=== PATIENT | female | born 1965 | race Caucasian/White ===

== ENCOUNTER 2022-01-19 10:20 | Emergency (ER) | payer OTHER, SELFPAY ==
[2022-01-19 10:29] VITALS: PULSE 61; RESP 18; TEMP 36.2; O2SAT 96; BMI 29.1
--- NOTE | 2022-01-19 11:02 | CRLHL7_ITS ---
For Patients: As a result of the Cures Act, medical imaging exams and procedure reports are released immediately into your electronic medical record. You may view this report before your referring provider. If you have questions, please contact your health care provider. Indication: Injury and pain Technique: Left foot 3 views. Comparison: None Findings: Small plantar and posterior calcaneal spurs. Accessory ossicle adjacent to the navicular. Bipartite tibial sesamoid. Chronic deformity of the 2nd toe distal phalanx. Midfoot alignment normal. No fracture. Impression: No sign of acute injury. Dictated by Greg Wall MD @ 01/19/2022 12:10:18 PM (Electronically Signed)
--- NOTE | 2022-01-19 11:19 | ED.LOWEXIN ---
HPI - Extremity Injury (Lower) General Time Seen by Provider: 11:20 Date Seen: 01/19/22 Chief Complaint: Lower Extremity Swelling Stated Complaint: Left foot injury Time Seen by Provider: 01/19/22 11:19 Source: patient, RN notes reviewed and old records reviewed Mode of arrival: ambulatory Limitations: no limitations History of Present Illness HPI Narrative: Aubrie is a very pleasant 56-year-old female with a history of hypertension who comes to the emergency room with a left foot injury. Patient was noted to be at work in [place] when she dropped a jar of pickles on her foot. She was wearing tennis shoes at the time. Since that time she has had significant discomfort. She denies any prodromal symptoms that could have caused the dropping of the pickles but blames this rather on the fact that she has carpal tunnel syndrome in her right wrist and has to wear a splint. Movement and walking increases her discomfort. Resting makes her feel the best. She is receptive to taking ibuprofen at this time. Related Data Home Medications Medication Instructions Recorded Confirmed escitalopram oxalate 10 mg tablet mg 01/19/22 hydrochlorothiazide 12.5 mg tablet mg 01/19/22 losartan 100 mg tablet mg 01/19/22 simvastatin 20 mg tablet mg 01/19/22 Allergies Allergy/AdvReac Type Severity Reaction Status Date / Time cephalexin Allergy Verified 01/19/22 10:36 chlorthalidone Allergy Verified 01/19/22 10:36 codeine Allergy Verified 01/19/22 10:36 erythromycin base Allergy Verified 01/19/22 10:36 fluoxetine Allergy Verified 01/19/22 10:36 lisinopril Allergy Verified 01/19/22 10:36 Penicillins Allergy Verified 01/19/22 10:36 Exam Narrative: Exam Narrative: Patient is alert and oriented. She is sitting comfortably in a exam chair. In room 4. A stocking and shoe are removed. Patient has an area of erythema elongated oval measuring approximately 3 cm x 1 cm over the navicular and 1st and 2nd metatarsals. Tender to the touch. Slight edema. Distally sensation and movement intact. Const: Vital Signs, click to edit/add: Vital Signs - 24 hr 01/19/22 10:29 01/19/22 11:54 Temperature 97.1 F L Pulse Rate [Right Pulse Oximeter] 61 Respiratory Rate 18 Blood Pressure [Le ft Upper Arm] 152/72 H Pulse Oximetry 96 Oxygen Delivery Me thod Room Air Course Course Hospital Course: Ordering foot x-rays and ibuprofen 600 mg p.o. at this time. Vital Signs Vital signs: Initial Vital Signs Temperature 97.1 F L 01/19/22 10:29 Temperature Source Temporal Artery Scan 01/19/22 10:29 Pulse Rate 61 01/19/22 10:29 Respiratory Rate 18 01/19/22 10:29 Pulse Oximetry 96 01/19/22 10:29 Oxygen Delivery Method 01/19/22 10:29 Vital Signs Temperature 97.1 F L 01/19/22 10:29 Pulse Rate 61 01/19/22 10:29 Respiratory Rate 18 01/19/22 10:29 Pulse Oximetry 96 01/19/22 10:29 Oxygen Delivery Method 01/19/22 10:29 Temperature 97.1 F L 01/19/22 10:29 Pulse Rate 61 01/19/22 10:29 Respiratory Rate 18 01/19/22 10:29 Blood Pressure 152/72 H 01/19/22 11:54 Pulse Oximetry 96 01/19/22 10:29 Oxygen Delivery Method 01/19/22 10:29 MDM - Extremity Injury (Lower) MDM Narrative Medical decision making narrative: 1. Left foot injury-no evidence of fracture on x-ray. Ibuprofen or Tylenol may be used for discomfort at home. Patient does request crutches and will have her use those for 72 hours with no weight-bearing on the left foot. Recommend icing not on bare skin. A note for her place of work [employer] [facility] [place] for no weight-bearing of the left foot for 72 hours. 2. Disposition-home with . Return or seek medical attention for worsening symptoms. Medical Records Attestation: I reviewed the patient's medical records. Imaging Data Left foot x-ray: Attestation: I have reviewed the pertinent imaging results. My impression: Questionable navicular fracture. However smooth ends question chronicity of this finding. Radiologist's impression: small plantar and posterior calcaneal spurs. Accessory ossicle adjacent to the navicular. Bipartite tibial sesamoid. Chronic deformity of the 2nd toe distal phalanx. Midfoot alignment normal. No fracture. Impression: No sign of acute injury. Discharge Plan Discharge Clinical Impression: Injury of foot, left Patient Disposition: Home, Self-Care Condition: Improved Additional Instructions: Crutches as needed. No bearing weight for 72 hours on the left foot. Later where a loose fitting shoe. Ice to area of discomfort. Not on bare skin. Ibuprofen or Tylenol as needed for discomfort Prescriptions: No Action simvastatin 20 mg tablet Label Comments: TAKE 1 TABLET BY MOUTH EVERY EVENING losartan 100 mg tablet Label Comments: TAKE 1 TABLET BY MOUTH EVERY DAY escitalopram oxalate 10 mg tablet Label Comments: TAKE 1 TABLET BY MOUTH EVERY MORNING hydrochlorothiazide 12.5 mg tablet Label Comments: TAKE 1 TABLET BY MOUTH ONCE DAILY. Follow Up/Referrals: Davida Pagan MD [Primary Care Provider] - Stand Alone Forms: MyHealth Info Instructions
[2022-01-19 11:54] VITALS: BP 152/72
[2022-01-19] MEDS: IBUPROFEN 200 MG TABLET 600 MG PO (12:01)
== END 2022-01-19 13:25 | disposition home or self-care (01) ==
PROVIDERS: Emergency Provider Family Medicine; PCP Family Medicine
DX: S97.82XA Crushing injury of left foot, initial encounter (principal); W20.8XXA Other cause of strike by thrown, projected or falling object, initial encounter; Y93.89 Activity, other specified; Y92.89 Other specified places as the place of occurrence of the external cause; Y99.0 Civilian activity done for income or pay
CPT/HCPCS: 73630; 97161; 99283; A9270